=== PATIENT | female | born 1950 | race Caucasian/White ===

== ENCOUNTER 2020-06-21 14:37 | Emergency (ER) | payer MEDICARE, SELFPAY ==
[~2020-06-21 14:37] MED LIST: ROXICODONE TAB 55 MG PO; XARELTO10 MG PO
[2020-06-21 18:10] LABS: HEMOGLOBIN 12.3 gm/dl (12.3-15.3); RED BLOOD COUNT 3.87 M/UL (4.00-5.10); WHITE BLOOD COUNT 9.2 K/UL (4.5-11.0)
[2020-06-21 18:23] LABS: BUN/CREATININE RATIO 17 (0-10)
[2020-08-19] MEDS ORDERED: PHENERGAN 12.12.5 M1 PO (08:56)
[2020-08-19] MEDS ORDERED: ATORVASTATIN CA20 MG PO (08:57)
[2020-08-19] MEDS ORDERED: COZAAR100 MG PO (08:57)
[2020-08-19] MEDS ORDERED: METOPROLOL TART25 MG PO (08:58)
[2020-08-19] MEDS ORDERED: ISOSORBIDE MONO30 MG PO (08:58)
[2020-08-19] MEDS ORDERED: GLUCOPHAGE500 MG PO (08:59)
[2020-08-19] MEDS ORDERED: PROTONIX 40 MG40 M1 PO (08:59)
[2020-08-19] MEDS ORDERED: GLEEVEC100 MG PO (08:59)
[2020-08-19] MEDS ORDERED: ONDANSETRON HCL8 MG PO (09:00)
[2020-08-19] MEDS ORDERED: CARVEDILOL12.5 MG PO (12:01)
== END 2020-06-22 00:15 | disposition home or self-care (01) ==
LOC: ER1 14:37
PROVIDERS: Family Medicine
DX: R07.9 Chest pain, unspecified (principal); Z88.0 Allergy status to penicillin; Z88.6 Allergy status to analgesic agent; Z88.8 Allergy status to other drugs, medicaments and biological substances
CPT/HCPCS: 36415; 71045; 80053; 82550; 82553; 83874; 84484; 85025; 85379; 93005; 99285; Q9967

== ENCOUNTER → 2020-07-10 | Outpatient (CLI) | payer MEDICARE ==
[~2020-07-10] MED LIST changes: +ATORVASTATIN CA20 MG PO; +CARVEDILOL12.5 MG PO; +COZAAR100 MG PO; +GLEEVEC100 MG PO; +GLUCOPHAGE500 MG PO; +ISOSORBIDE MONO30 MG PO; +METOPROLOL TART25 MG PO; +ONDANSETRON HCL8 MG PO; +PHENERGAN 12.12.5 M1 PO; +PROTONIX 40 MG40 M1 PO
[2020-07-10 09:43] LABS: BUN/CREATININE RATIO 23 (0-10)
== END ==
LOC: LAB 08:43
PROVIDERS: Internal Medicine Cardiovascular Disease
DX: I25.10 Atherosclerotic heart disease of native coronary artery without angina pectoris (principal)
CPT/HCPCS: 36415; 80053; 80061

== ENCOUNTER → 2020-07-27 | Outpatient (CLI) | payer MEDICARE | LOC: ECHO 08:38 | DX: I25.10 Atherosclerotic heart disease of native coronary artery without angina pectoris (principal); R07.9 Chest pain, unspecified; Z98.61 Coronary angioplasty status; R93.1 Abnormal findings on diagnostic imaging of heart and coronary circulation ==

== ENCOUNTER → 2020-07-30 | Outpatient (CLI) | payer MEDICARE, OTHER | LOC: HEART 5 07-28 08:45 | DX: I25.10 Atherosclerotic heart disease of native coronary artery without angina pectoris (principal); R07.9 Chest pain, unspecified; Z95.5 Presence of coronary angioplasty implant and graft; R94.39 Abnormal result of other cardiovascular function study | CPT/HCPCS: 78452; A9502; J2785 ==

== ENCOUNTER → 2020-08-19 | Outpatient (CLI) | payer MEDICARE, OTHER ==
[2020-08-19 08:17] LABS: HEMOGLOBIN 11.3 gm/dl (12.3-15.3); RED BLOOD COUNT 3.53 M/UL (4.00-5.10)
[2020-08-19 08:48] LABS: BUN/CREATININE RATIO 13 (0-10)
== END ==
LOC: CATH 07:47
PROVIDERS: Internal Medicine Cardiovascular Disease
DX: T82.855A Stenosis of coronary artery stent, initial encounter (principal); I25.118 Atherosclerotic heart disease of native coronary artery with other forms of angina pectoris; I10 Essential (primary) hypertension; E11.9 Type 2 diabetes mellitus without complications; E78.5 Hyperlipidemia, unspecified; K21.9 Gastro-esophageal reflux disease without esophagitis; Z98.61 Coronary angioplasty status; Z79.84 Long term (current) use of oral hypoglycemic drugs; Z87.891 Personal history of nicotine dependence; Z82.49 Family history of ischemic heart disease and other diseases of the circulatory system; Z79.899 Other long term (current) drug therapy; Y83.1 Surgical operation with implant of artificial internal device as the cause of abnormal reaction of the patient, or of later complication, without mention of misadventure at the time of the procedure
CPT/HCPCS: 36415; 80048; 85025; 85610; 85730; 93005; 99152; 99153; C1769; C1887; C1894; J0360; J1644; J2250; J3010; J7030; Q9967

== ENCOUNTER 2020-11-12 12:37 | Emergency (ER) | payer MEDICARE ==
[2020-11-12 14:55] LABS: HEMOGLOBIN 10.4 gm/dl (12.3-15.3); RED BLOOD COUNT 3.22 M/UL (4.00-5.10); WHITE BLOOD COUNT 8.9 K/UL (4.5-11.0)
== END 2020-11-12 18:50 | disposition home or self-care (01) ==
LOC: ER1 12:37
PROVIDERS: Emergency Medicine
DX: K92.1 Melena (principal); I25.10 Atherosclerotic heart disease of native coronary artery without angina pectoris; I10 Essential (primary) hypertension; E78.5 Hyperlipidemia, unspecified; Z88.0 Allergy status to penicillin; Z79.899 Other long term (current) drug therapy
CPT/HCPCS: 71045; 80053; 81001; 82272; 82550; 82553; 83690; 83874; 84484; 85025; 85610; 85730; 86850; 86900; 86901; 99285; Q9967

== ENCOUNTER → 2021-01-05 | Outpatient (CLI) | payer MEDICARE ==
[2021-01-05 12:56] LABS: ADENOVIRUS F 40/41 Not Detected (Negative); ASTROVIRUS Not Detected (Negative); CAMPYLOBACTER Not Detected (Negative); CLOSTRIDIUM DIFFICILE TOX A/B Not Detected (Negative); CRYPTOSPORIDIUM Not Detected (Negative); E.COLI 0157 Not Detected (Negative); ENTAMOEBA HISTOLYTICA Not Detected (Negative); ENTEROAGGREGATIVE E.COLI (EAEC Not Detected (Negative); ENTEROTOXIGENIC E.COLI (ETEC) Not Detected (Negative); GIARDIA LAMBLIA Not Detected (Negative); NOROVIRUS GI/GII Not Detected (Negative); PLESIOMONAS SHIGELLOIDES Not Detected (Negative); ROTOVIRUS A Not Detected (Negative); SALMONELLA Not Detected (Negative); SAPOVIRUS Not Detected (Negative); SHIG/ENTEROINVAS.ECOLI (EIEC) Not Detected (Negative); SHIGA-LIK TOX.PRO.E.COLI (STEC Not Detected (Negative); VIBRIO Not Detected (Negative); VIBRIO CHOLERAE Not Detected (Negative); YERSINIA ENTEROCOLITICA Not Detected (Negative)
[2021-01-05 14:27] LABS: ENTEROPATHOGENIC E.COLI (EPEC) DETECTED (Negative)
== END ==
LOC: LAB 11:17
PROVIDERS: Internal Medicine
DX: C49.A0 Gastrointestinal stromal tumor, unspecified site (principal)
CPT/HCPCS: 87507

== ENCOUNTER → 2021-11-22 | Outpatient (CLI) | payer MEDICARE | LOC: LAB 10:43 | DX: Z20.822 Contact with and (suspected) exposure to COVID-19 (principal) | CPT/HCPCS: U0002 ==